=== PATIENT | female | born 2000 | race Caucasian/White ===

== ENCOUNTER → 2020-06-02 14:47 | Outpatient (CLI) | payer BC, SELFPAY ==
[2019-12-30 10:12] VITALS: BMI 21.6
[2020-06-03 09:14] LABS: HIV - WCH Non-Reactive (Nonreactive); Hepatitis B Surface Antibody Non-Reactive; Hepatitis B Surface Antigen Non-Reactive (Nonreactive); Hepatitis C Antibody Non-Reactive (Nonreactive)
[2020-06-04 01:40] LABS: Rapid Plasmin Reagin (RPR) NONREACTIVE (NONREACTIVE)
[2020-06-05 04:10] LABS: Chlamydia By Nucleic Acid AMP Negative (Negative)
[2020-06-05 11:28] LABS: Gonococcus By Nucleic Acid AMP Negative (Negative)
== END ==
PROVIDERS: PCP Family Medicine; Visit Provider Student in an Organized Health Care Education/Training Program
DX: Z11.3 Encounter for screening for infections with a predominantly sexual mode of transmission (principal)
CPT/HCPCS: 36415; 86592; 86703; 86706; 86803; 87340; 87491; 87591

== ENCOUNTER → 2020-06-26 12:14 | Outpatient (CLI) | payer BC, SELFPAY ==
[2019-12-30 10:12] VITALS: BMI 21.6
[2020-07-01 13:46] LABS: SARS-COV-2 TOTAL ABS Nonreactive (Nonreactive)
== END ==
PROVIDERS: PCP Family Medicine; Referring Provider Family Medicine; Visit Provider Family Medicine
DX: Z20.828 Contact with and (suspected) exposure to other viral communicable diseases (principal)
CPT/HCPCS: 36415; 86769

== ENCOUNTER 2021-02-04 19:19 | Emergency (ER) | payer BC, SELFPAY ==
[2021-02-04 19:20] VITALS: BP 154/108; PULSE 82; RESP 16; TEMP 36.4; O2SAT 99; BMI 21.6
--- NOTE | 2021-02-04 20:35 | EX.ED.DYSGE1 ---
HPI History of Present Illness Chief Complaint: Anxiety Informant: patient Narrative Narrative: 21-year-old female states that she was napping and woke up. States that she felt like she could not catch her breath and began to breathe harder. She states she developed spasms of her hands and fingers. She developed tingling in the perioral arms and legs. She states that she is doing much better now just feels tired and a little disconnected and hungry. States she has had anxiety reactions in the past but not to this degree. She notes that she has had a slight head cold recently but no significant mucus cough shortness of breath or fevers [facility] Medical History History of IBS Home Medications NK 12/30/19 [History Last Taken Unknown] Allergy/AdvReac Type Severity Reaction Status Date / Time Penicillins Allergy Mild Other Verified 02/04/21 19:24 Family History Grandmother Breast cancer Mother Lupus Aunt Breast cancer Surgical History S/P wisdom tooth extraction Social History Smoking Status: Never smoker alcohol intake: current alcohol intake frequency: a few times a month ROS ROS ED Constitutional Constitutional ED: Denies chills or weight loss Eyes Eyes: Denies change in vision or diplopia ENT ENT ED: Reports rhinorrhea; Denies ear pain or sore throat Cardiovascular Cardiovascular: Denies chest pain, orthopnea, palpitations or racing heartbeat Respiratory/Chest Respiratory/Chest: Reports dyspnea; Denies cough or orthopnea Gastrointestinal Gastrointestinal: Denies abdominal pain, diarrhea, nausea or vomiting Genitourinary Genitourinary ED: Denies dysuria, hematuria or urinary frequency Musculoskeletal Musculoskeletal: Denies arthralgias or myalgias Integumentary Denies abscess or rash Neurologic Neurologic: Denies headache(s) or weakness Psychiatric Psychiatric: Reports anxiety; Denies depression, suicidal ideation or suicidal thoughts Endocrine Endocrinology: Denies polydipsia, polyphagia or polyuria Allergic/Immunologic Allergic/Immunologic ED: Denies mouth swelling, tongue swelling or urticaria EXAM Physical Exam Const Vital Signs: 02/04/21 19:20 Temperature 97.6 F L Temperature Source Temporal Pulse Rate 82 Respiratory Rate 16 Blood Pressure 154/108 H Blood Pressure Mean 123 Pulse Ox 99 Oxygen Delivery Method Room Air Positive well nourished and well developed General Appearance ED: well developed HEENT Reports normocephalic, head/scalp atraumatic and moist mucous membranes Eyes PERRL and EOMs intact bilaterally Neck no lymphadenopathy, supple and no JVD Resp normal respiratory effort and clear to auscultation bilaterally Cardio regular rate, regular rhythm and no murmurs GI normal to inspection, nondistended, normoactive bowel sounds and non-tender Palpation: soft Back/Spine no CVA tenderness and normal ROM Extremity normal to inspection General Extremety ED: Negative for edema General Extremity: Negative for edema Neuro oriented x3 and CN's II-XII intact bilaterally Sensorium / Orientation: alert Motor Exam: strength 5/5 throughout Psych mental status grossly normal Mood & Affect: Negative for depressed or tearful Skin no rashes or lesions noted and no wounds MDM MDM MDM Narrative Medical decision making narrative: Difficult to say exactly what precipitated her event but sounds like it was mostly anxiety mediated. Patient currently doing well and will have her discharged home Discharge Plan Triage Chief Complaint: Anxiety ED Provider: Jaya Sr Dx/Rx/DC Orders Clinical Impression: Anxiety reaction Instructions: ED Anxiety Reaction Prescriptions: No Action NK RF: 0 Primary Care Provider: Hayder Culver Referrals: Hayder Culver MD [Primary Care Provider] - As Needed Disposition Disposition: Home, Self Care
[2021-02-04 20:55] VITALS: BP 143/68; PULSE 77; RESP 18; O2SAT 100
== END 2021-02-04 20:56 | disposition home or self-care (01) ==
PROVIDERS: Emergency Provider Emergency Medicine; PCP Family Medicine
DX: F41.1 Generalized anxiety disorder (principal)
CPT/HCPCS: 99282

== ENCOUNTER → 2021-04-15 15:17 | Outpatient (CLI) | payer BC, SELFPAY | PROVIDERS: PCP Family Medicine; Visit Provider Family Medicine | DX: Z23 Encounter for immunization (principal) ==